=== PATIENT | male | born 1995 | race Caucasian/White ===

== ENCOUNTER 2017-08-11 16:11 | Emergency (ER) | payer MEDICAID, OTHER, SELFPAY | END 2017-08-11 16:56 | disposition home or self-care (01) | LOC: M ED 16:11 | DX: L02.01 Cutaneous abscess of face (principal) | CPT/HCPCS: 99282 ==

== ENCOUNTER 2017-11-26 01:00 | Emergency (ER) | payer SELFPAY | END 2017-11-26 01:33 | disposition home or self-care (01) | LOC: M ED 01:00 | DX: L02.212 Cutaneous abscess of back [any part, except buttock and flank] (principal); S20.212A Contusion of left front wall of thorax, initial encounter; X58.XXXA Exposure to other specified factors, initial encounter; Y92.099 Unspecified place in other non-institutional residence as the place of occurrence of the external cause; Y93.9 Activity, unspecified; Y99.9 Unspecified external cause status; F12.10 Cannabis abuse, uncomplicated | CPT/HCPCS: 99282 ==